=== PATIENT | male | born 1980 | race African-American/Black ===

== ENCOUNTER 2021-08-28 11:49 | Emergency (ER) | payer OTHER ==
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
[2021-08-28 13:55] VITALS: BP 128/78; PULSE 78; RESP 16; TEMP 98.7
== END 2021-08-28 13:54 | disposition home or self-care (01) ==
LOC: EC 11:49
DX: S06.0X9A Concussion with loss of consciousness of unspecified duration, initial encounter (principal)
CPT/HCPCS: 70450; 99284

== ENCOUNTER 2023-01-19 07:30 | Day surgery (SDC) | payer OTHER ==
[2023-01-19] MEDS ORDERED: LACTATED RINGERS 1,000 ML IV ONE (07:46)
[2023-01-19 08:01] VITALS: TEMP 96.9
[2023-01-19] MEDS ORDERED: PROPOFOL 10 MG/ML 20 ML VIAL IV ONE (08:20)
[2023-01-19] MEDS ORDERED: LIDOCAINE 2% INJ 20 MG/ML (2 ML VIAL) ONE (08:20)
--- NOTE | 2023-01-19 08:24 | P.GSHP ---
History of Present Illness H&P Date: 01/19/23 Chief Complaint: Rectal bleeding 's referral male with history of rectal bleeding. Patient presents today for colonoscopy. Past Medical History Past Medical History: Asthma Additional Past Medical History / Comment(s): Diarrhea/constipation issues, asthma as child History of Any Multi-Drug Resistant Organisms: None Reported Past Surgical History: No Surgical Hx Reported Past Anesthesia/Blood Transfusion Reactions: Unable to Obtain Additional Past Anesthesia/Blood Transfusion Reaction / Comment(s): Never had anesthesia. Smoking Status: Former smoker - Past Family History Father Family Medical History: No Reported History Mother Family Medical History: No Reported History Medications and Allergies Home Medications Medication Instructions Recorded Confirmed Type L.acidoph,Paracasei, B.lactis 1 cap PO QAM 01/18/23 01/19/23 History [Probiotic] Allergies Allergy/AdvReac Type Severity Reaction Status Date / Time No Known Allergies Allergy Verified 01/19/23 07:55 Surgical - Exam Vital Signs Temp Pulse Resp BP Pulse Ox 96.9 F L 53 L 18 123/73 100 01/19/23 07:44 01/19/23 07:44 01/19/23 07:44 01/19/23 07:44 01/19/23 07:44 - General well developed, well nourished, no distress - Eyes PERRL - ENT normal pinna - Neck no masses - Respiratory normal expansion - Cardiovascular Rhythm: regular - Abdomen Abdomen: soft, non tender Assessment and Plan Assessment: Rectal bleeding. We'll perform colonoscopy.
--- NOTE | 2023-01-19 08:35 | P.OP ---
Date of Procedure: 01/19/23 Preoperative Diagnosis: Rectal bleeding Postoperative Diagnosis: Internal hemorrhoids Procedure(s) Performed: Colonoscopy Anesthesia: CHICHI (Gennaro) Surgeon: Wood Burdick Pathology: none sent Condition: stable Disposition: PACU Description of Procedure: The patient's placed on the endoscopy table in the lateral position. He received IV sedation. Digital rectal exam was performed. There were internal hemorrhoids noted. The flexible colonoscope was then placed patient anus and passed throughout the entire colon. The ileocecal valve was visualized. The cecum, ascending and transverse colon appeared normal. The descending and sigmoid colon appeared normal. Scope was brought back the rectum and this appeared normal. The scope was withdrawn to anus and internal hemorrhoids are noted. Scope was then withdrawn patient. There is no sign of any active rectal bleeding. Presumed patient may have bleeding from hemorrhoids.
[2023-01-19 08:39] VITALS: RESP 16
[2023-01-19 09:02] VITALS: BP 114/75; PULSE 60
== END 2023-01-19 09:33 | disposition home or self-care (01) ==
LOC: ORWHC2ENDO 07:30
PROVIDERS: ATTEND Surgery
DX: K64.8 Other hemorrhoids (principal); J45.909 Unspecified asthma, uncomplicated; Z87.891 Personal history of nicotine dependence; Z79.899 Other long term (current) drug therapy
CPT/HCPCS: 45378; J2704; J2001